=== PATIENT | female | born 1995 | race Two or more races ===

== ENCOUNTER 2025-02-06 12:36 | Emergency (ER) | payer OTHER ==
[~2025-02-06] VITALS: Ht 165.1 cm; Wt 59.0 kg
[2025-02-06] MEDS ORDERED: FAMOTIDINE/PF 20 MG in 0.9 % SODIUM CHLORIDE 8 ML IV PUSH STA (13:24)
[2025-02-06] MEDS ORDERED: 0.9 % SODIUM CHLORIDE 1,000 ML IV SCH (13:30)
[2025-02-06] MEDS ORDERED: ONDANSETRON HCL 2 MG/ML VIAL IV ONE (13:30)
[2025-02-06 13:47] LABS: BASO % 0.2 % (0.1-1.2); EOS # 0.09 (0.04-0.54); EOS % 0.9 % (0.7-7.0); LYMPH # 1.84 (1.18-3.74); LYMPH % 17.7 % (19.3-53.1); MEAN PLATELET VOLUME 10.10 fl (9.4-12.4); MONO # 0.62 (0.24-0.82); MONO % 6.0 % (4.7-12.5); NEUT # 7.77 (1.56-6.13); NEUT % 74.9 % (34.0-71.1); RED CELL DISTRIBUTION WIDTH 12.0 % (11.6-14.4)
[2025-02-06 14:40] LABS: ALT/SGPT 13.0 U/L (12-78); AST/SGOT 16.0 U/L (15-37); BILIRUBIN TOTAL 0.37 mg/dL (0.3-1.2); BUN CREA RATIO 11.0 (7.0-25.0); CREATININE SERUM 0.57 mg/dL (0.55-1.02); GFR 126.3; GLOBULINA 4.2 G/DL (2.4-3.5); GLUCOSE FASTING 75.0 mg/dL (65-100); OSMOLALITY SERUM 274.0 MOSM/KG (275-295)
[2025-02-06 14:55] LABS: HCG QUANTITATIVE 57911.0 mUI/mL (1-3)
[2025-02-06] MEDS ORDERED: PEPCID AC20 MG PO (15:16)
[2025-02-06] MEDS ORDERED: ONDANSETRON ODT8 MG PO (15:16)
== END 2025-02-06 15:35 | disposition home or self-care (01) ==
LOC: ER 13:58
PROVIDERS: General Practice
DX: Z33.1 Pregnant state, incidental (principal); Z3A.12 12 weeks gestation of pregnancy; R10.9 Unspecified abdominal pain; R11.2 Nausea with vomiting, unspecified
CPT/HCPCS: 36415; 96365; 96366; 99282; J2405; J3490; J7030

== ENCOUNTER → 2025-03-23 13:55 | Outpatient (CLI) | payer OTHER ==
[~2025-03-23 13:55] MED LIST: ONDANSETRON ODT8 MG PO; PEPCID AC20 MG PO
== END | disposition home or self-care (01) ==
LOC: PRENATAL 13:55
PROVIDERS: ATTEND Obstetrics & Gynecology Maternal & Fetal Medicine
DX: O44.02 Complete placenta previa NOS or without hemorrhage, second trimester (principal); Z36.0 Encounter for antenatal screening for chromosomal anomalies; Z14.8 Genetic carrier of other disease; Z3A.18 18 weeks gestation of pregnancy

== ENCOUNTER 2025-04-17 00:54 | Emergency (ER) | payer OTHER ==
[~2025-04-17] VITALS: Ht 157.5 cm; Wt 56.7 kg
[2025-04-17 01:51] VITALS: BP 126/85; O2SAT 100
[2025-04-17] MEDS ORDERED: PRIMACARE SOFT1 EACH PO (01:54)
[2025-04-17] MEDS ORDERED: SERTRALINE HCL 25 MG TABLET PO STA (02:16)
[2025-04-17 03:44] LABS: BASO % 0.2 % (0.1-1.2); EOS # 0.08 (0.04-0.54); EOS % 0.6 % (0.7-7.0); LYMPH # 2.62 (1.18-3.74); LYMPH % 21.0 % (19.3-53.1); MEAN PLATELET VOLUME 9.20 fl (9.4-12.4); MONO # 0.92 (0.24-0.82); MONO % 7.4 % (4.7-12.5); NEUT # 8.73 (1.56-6.13); NEUT % 70.2 % (34.0-71.1); RED CELL DISTRIBUTION WIDTH 13.2 % (11.6-14.4)
[2025-04-17 04:01] LABS: BUN CREA RATIO 15.0 (7.0-25.0); CREATININE SERUM 0.52 mg/dL (0.55-1.02); GFR 140.41; GLUCOSE FASTING 89.0 mg/dL (65-100); OSMOLALITY SERUM 275.0 MOSM/KG (275-295)
[2025-04-17 05:33] LABS: URINE APPEARANCE Clear; URINE BILIRRUBIN Negative (NEGATIVE); URINE BLOOD Negative; URINE COLOR Yellow; URINE GLUCOSE Negative (NEGATIVE); URINE KETONE Negative (NEGATIVE); URINE LEUKOCYTE Negative; URINE NITRATE Negative; URINE PROTEIN Negative (NEGATIVE); URINE UROBILINOGEN 0.2 E.U./dl
[2025-04-17 05:37] LABS: URINE BACTERIA 160.6 uL (0.0-1933); URINE EPITHELIAL CELLS 5.9 uL (0.0-38.8); URINE WBC 1.9 uL (0.0-23.2)
[2025-04-17 05:49] LABS: URINE CAST 0.00 uL (0.0-1.40); URINE RBC 1.0 uL (0.0-20.8)
== END 2025-04-17 07:14 | disposition home or self-care (01) ==
LOC: ER 00:55
PROVIDERS: General Practice
DX: O99.342 Other mental disorders complicating pregnancy, second trimester (principal); F41.8 Other specified anxiety disorders; O21.0 Mild hyperemesis gravidarum; Z3A.22 22 weeks gestation of pregnancy

== ENCOUNTER 2025-05-22 11:24 | Outpatient (CLI) | payer OTHER ==
[~2025-05-22 11:24] MED LIST changes: +PRIMACARE SOFT1 EACH PO
== END 2025-05-22 11:25 | disposition home or self-care (01) ==
LOC: PRENATAL 11:24
PROVIDERS: ATTEND Obstetrics & Gynecology Maternal & Fetal Medicine
DX: O26.842 Uterine size-date discrepancy, second trimester (principal); O44.02 Complete placenta previa NOS or without hemorrhage, second trimester; Z3A.27 27 weeks gestation of pregnancy